=== PATIENT | male | born 1980 | race Caucasian/White ===

== ENCOUNTER 2023-11-20 10:07 | Inpatient (IN) | payer OTHER ==
[2023-11-20 10:39] VITALS: BMI 29.2
[2023-11-20] MEDS ORDERED: ACETAMINOPHEN 500 MG TAB PO PRN (12:28)
[2023-11-20] MEDS ORDERED: VANCOMYCIN 1 GM in NA CHLORIDE 0.9% 250 ML IVPB SCH (13:00)
[2023-11-20] MEDS ORDERED: VANCOMYCIN 2 GM in NA CHLORIDE 0.9% 500 ML IVPB ONE (13:00)
[2023-11-20 13:20] LABS: Absolute Lymphocytes (CBC) 1.6 K/uL (0.7-4.9); Hematocrit 42.8 % (39.6-49.0); Lymphocytes % 14.4 % (15.3-44.8); MCV 80.2 fL (80-100); MPV 9.5 fL (7.6-11.3); Platelets 173 thou/uL (152-406); RBC Red Blood Cell Count 5.33 M/uL (4.33-5.43)
[2023-11-20 14:08] LABS: ALT/SGPT 28 U/L (16-61); AST/SGOT 19 U/L (15-37); Albumin 3.4 g/dL (3.4-5.0); Alkaline Phosphatase 83 U/L (45-117); BUN Blood Urea Nitrogen 11 mg/dL (7-18); Bicarbonate 29 mEq/L (21-32); Bilirubin Total 0.5 mg/dL (0.2-1.0); Glomerular Filtration Rate 111 ml/min (=/>90); Glucose Level 130 mg/dL (74-106); Magnesium 1.9 mg/dL (1.6-2.4); Potassium 3.8 mEq/L (3.5-5.1); Sodium Level 138 mEq/L (136-145)
[2023-11-20 14:10] LABS: C-Reactive Protein < 2.90 mg/L (<3.00)
--- NOTE | 2023-11-20 15:02 | RAD REPORT ---
EXAM DESCRIPTION: Laurita Turner (2 Views)11/20/2023 1:37 pm CLINICAL HISTORY: Cellulitis COMPARISON: None FINDINGS: The lungs appear clear of acute infiltrate. The heart is mildly enlarged. Postsurgical ch anges involve the chest IMPRESSION: No acute abnormalities displayed
--- NOTE | 2023-11-20 16:37 | CON ---
Date of Consultation: 11/20/2023 Reason For Consultation: Left great toe infection. 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 Puga's office today with a left great toe in fection for about 2 months, progressive in nature, getting worsening associated with redness, warmth and swelling and minimal crusty discharge. The patient does have discomfort in this toe. Does not h ave any fevers or chills. No sore throat, runny nose, cough, headaches, or dizziness. No chest pain . Review of Systems: Otherwise, unremarkable. Past Medical History: Negative. Past Surgical History: Closure of an ASD when he was a child. Allergies: NO ALLERGIES. Social History: He does not smoke or drink. Family History: Noncontributory. Physical Examination: Vital Signs: Stable. General: He is awake, alert, oriented x3. Head and Neck: No masses. Chest: Clear. Heart: S1, S2. Abdomen: Soft. Extremities: Normal dorsalis pedis and posterior tibial pulses 2+ and equal bilaterally. On the lef t great toe, there are erythema, warmth, edema. The nail was partially avulsed with crusty material on the medial and lateral aspect of the nail. It appears that there may be fluid underneath there. It is tender. Neuro: Nonfocal. Diagnostic Data: X-ray of the foot and MRI are pending. Laboratory Data: Shows a white count 10.8 with a left shift. Chemistry reviewed. Glucose is slight ly elevated at 130, otherwise essentially unremarkable. Assessment: Left great toe infection, rule out abscess and osteomyelitis. Recommendations: Continue IV antibiotics, ceftriaxone and vancomycin as ordered. NPO after midnight for debridement of the left great toe. Patient and family understand risks, benefits, alternatives, and agrees to procedure. We will await the results of the MRI and the x-ray of the toe and adjust t he recommendation based on the results. The plan of care was discussed in detail with Dr. Puga. RASHI/SALONI Voice ID: [id number] Report ID: [id number]
[2023-11-20] MEDS: ENOXAPARIN 40 MG/0.4 ML SQ SCH (16:50)
--- NOTE | 2023-11-20 18:11 | RAD REPORT ---
EXAM DESCRIPTION: RAD - Foot Left 3 View - 11/20/2023 3:12 pm CLINICAL HISTORY: Left Foot pain FINDINGS: No fracture or dislocation is seen. Cortical regularity involves terminal tuft first distal phalanx consistent with osteomyelitis.
--- NOTE | 2023-11-20 18:16 | RAD REPORT ---
EXAM DESCRIPTION: MRI - Foot Left Wo Cont - 11/20/2023 4:09 pm CLINICAL HISTORY: Foot pain and swelling COMPARISON: X-ray November 20, 2023 TECHNIQUE: Axial and coronal magnetic resonance imaging of the l abdomen performed FINDINGS: Abnormal signal involves the distal aspect of the first distal phalanx consistent with ost eomyelitis. No fracture or dislocation 1.3 centimeter fluid collection lies adjacent to the plantar aspect of the first metatarsal head IMPRESSION: Osteomyelitis first distal phalanx 1.3 centimeter fluid collection adjacent to the plantar aspect of the first metatarsal head may repre sent an abscess and should be correlated clinically
[2023-11-20] MEDS: CEFTRIAXONE 1,000 MG in NA CHLORIDE 0.9% 50 ML IVPB SCH (20:42)
--- NOTE | 2023-11-20 21:19 | HP ---
Date of Admission: 11/20/2023 Chief Complaint: Left toe pain and redness. History Of Present Illness: This is a 43-year-old very pleasant male patient who came into office to day with his mother with left foot problem. Patient injured his left great toe when he accidentally hit against furniture about 3 months ago and since that time, he has this redness, swelling, and some discharge from the nail bed of the left great toe area. He did not seek any medical attention until today was the first time he was brought into my office and after he was evaluated at office, he was admitted to the hospital as I was concerned about possibility of osteomyelitis of this foot. Allergies: NO KNOWN ALLERGIES. Medications: He does not take any medications at home. Review of Systems: Musculoskeletal: As mentioned above. Dermatology: As mentioned above. All other systems reviewed and negative. Past Medical History: Significant for atrial septal defect. Past Surgical History: Significant for repair of atrial septal defect in 1992. Family History: Not pertinent. Social History: Negative for smoking and alcohol use. Physical Examination: Vital Signs: Height 5 feet 5 inches, weight 176 pounds. Temperature , pulse , r espiratory rate , blood pressure , oxygen saturation . General: Awake, alert, oriented, not in distress. HEENT: Head atraumatic, normocephalic. Conjunctivae nonerythematous. Sclerae white. Mouth, no thr ush or edema noted. Ears/Nose, no mass, lesion, discharge noted. Neck: Supple. No JVD, lymph nodes, bruit, thyromegaly noted. Lungs: Bilateral good equal air entry. Clear to auscultation. No rhonchi. No rales. Heart: Presence of systolic murmur. No gallop. Abdomen: Soft, bowel sounds normal. No guarding, rigidity, tenderness, mass, hepatosplenomegaly, dis tention, or bruit noted. Extremities: No leg edema. No calf tenderness. Skin: No rash, ulcer, cellulitis. Lymphatics: No lymph node enlargement in neck, supraclavicular, infraclavicular region. Neuro: No focal neurological deficit. Chest: Unremarkable. External Genitalia: Deferred. Rectal: Deferred. Musculoskeletal: Patient's left great toe skin involving entire toe is red. Patient has mild soft t issue edema involving entire left great toe and there is some tenderness of the left great toe. Jimena ent has some dry discharge at the left great toe nail bed area. There is no open wound. Peripheral pulses, dorsalis pedis artery pulsation 2+ bilaterally equal and normal. Laboratory Data: White count 10.8, hemoglobin 15, platelets 173. Sodium 138, potassium 3.8, chlorid e 106, bicarb 29, BUN 11, creatinine 0.83, glucose 130. Liver function tests unremarkable. TSH 1.87 0. CRP less than 2.9. Chest x-ray, no acute cardiopulmonary changes. Left foot x-ray shows cortica l irregularity involving left distal phalanx consistent with osteomyelitis and MRI of left foot shows osteomyelitis involving 1st distal phalanx and 1.3 cm fluid collection in the left great toe, soft t issue. Impression: 1.Cellulitis/abscess, left great toe. 2.Osteomyelitis, acute, left great toe. Plan: We will admit the patient to hospital for further evaluation and management of this problem. Patient is appropriate for inpatient and is expected to spend 2 midnights in hospital. DVT prophylax is will be given using Lovenox per order. I have consulted Dr. Pride from General Surgery and detail s were discussed with him. He is going to do debridement tomorrow. Meanwhile, we will start the pat ient on IV antibiotic, which is ceftriaxone and vancomycin. We will order PICC line and Social Servi ce consultation as the patient will need 6 weeks of IV antibiotic therapy. Lovenox will be given for DVT prophylaxis. Details and plan of treatment discussed with the patient and patient's mother. ANGIE/MODL Voice ID: [id number]
[2023-11-21] MEDS: VANCOMYCIN 1.5 GM in NA CHLORIDE 0.9% 500 ML IVPB SCH ×2 (01:00→13:14)
--- NOTE | 2023-11-21 06:53 | ECHO ---
HEIGHT: 5 ft 5 in WEIGHT: 176 lb 0 oz DATE OF STUDY: 11/20/[address]: Joseph Puga MD 2-DIMENSIONAL: YES M.MODE: YES DOPPLER: YES COLOR FLOW: YES TDS: PORTABLE: YES DEFINITY: BUBBLE STUDY: DIAGNOSIS: MURMUR/ STATUS POST ATRIAL SEPTAL DEFECT REPAIR IN 1992 CARDIAC HISTORY: CATHERIZATION: SURGERY: PROSTHETIC VALVE: PACEMAKER: MEASUREMENTS (cm) DIASTOLIC (NORMALS) SYSTOLIC (NORMALS) IVSd 1.0 (0.6-1.2) LA Diam 3.8 (1.9-4.0) LVEF 65% LVIDd 4.3 (3.5-5.7) LVIDs 2.8 (2.0-3.5) %FS 35% LVPWd 1.1 (0.6-1.2) Ao Diam 3.4 (2.0-3.7) 2 DIMENSIONAL ASSESSMENT: RIGHT ATRIUM: NORMAL LEFT ATRIUM: NORMAL RIGHT VENTRICLE: NORMAL LEFT VENTRICLE: NORMAL TRICUSPID VALVE: MILD TRICUSPID REGURGITATION MITRAL VALVE: MILD MITRAL REGURGITATION PULMONIC VALVE: NORMAL AORTIC VALVE: NORMAL PERICARDIAL EFFUSION: NONE AORTIC ROOT: NORMAL LEFT VENTRICULAR WALL MOTION: NORMAL DOPPLER/COLOR FLOW: SEE BELOW COMMENTS: 1. NORMAL LEFT VENTRICULAR EJECTION FRACTION 60-65% 2. NORMAL WALL MOTION 3. NORMAL DIASTOLIC FUNTION 4. MILD TRICUSPID REGURGITATION 5. MILD MITRAL REGURGITATION TECHNOLOGIST: GRADY FOSTER
[2023-11-21] MEDS ORDERED: Ringers Lactate 1,000 ML IV ONE (06:58)
[2023-11-21] MEDS ORDERED: BUPIVACAINE 0.5% PF 10 ML VIAL ONE (07:22)
[2023-11-21] MEDS ORDERED: MIDAZOLAM HCL 2 MG/2 ML INJ ONE (07:26)
[2023-11-21] MEDS ORDERED: LIDOCAINE 1% MPF 5 ML VIAL ONE (07:34)
[2023-11-21] MEDS ORDERED: propofoL 200 MG/20 ML VIAL IV ONE (07:34)
[2023-11-21] MEDS ORDERED: FENTANYL CITR 100 MCG/2 ML ONE (07:35)
[2023-11-21] MEDS ORDERED: dexAMETHasone 4 MG/ML VIAL ONE (08:24)
[2023-11-21] MEDS ORDERED: ONDANSETRON 4 MG/2 ML VIAL ONE (08:24)
[2023-11-21] MEDS ORDERED: KETOROLAC 30 MG/ML INJ ONE (08:24)
[2023-11-21] MEDS ORDERED: EPHEDRINE SULF 50 MG/ML VIAL ONE (08:24)
--- NOTE | 2023-11-21 08:37 | P.OP ---
Date of Service: 11/21/23 Preop diagnosis: Left first toe infected wound with osteomyelitis Postop diagnosis: Same Procedure performed: Debridement of left first toe subcutaneous tissue, debridement of toenail Surgeon: Michel Pride MD Product Support Representative: None Estimated blood loss: Minimal Specimen: Fluid and infected tissue for culture and sensitivity Findings: As above Anesthesia: General Complications: None Drains: None Fluids and blood products: Nonapplicable Disposition: Recovery room Operative note: Patient brought to the OR and placed in supine position. General anesthesia begun. Patient prepped and draped in the usual sterile fashion. Marcaine 0.5% infiltrated in a field block fashion. 18-gauge needle used to aspirate approximately 1 cc of fluid on the plantar aspect near the first metatarsal head. Fluid sent for culture and sensitivity. Patient had hypertrophic granulation tissue on the sides of the nail on the first toe. This was sharply debrided down through to the subcutaneous tissue with scissors. Bleeding controlled with cautery. The edge of the toenail was digging into the tissue. Bone cutter was used to debride the edges of the toenail all the way to the base of the nail. Curette was used to debride more infected granulation tissue. All tissue that was debrided was sent for culture and sensitivity. Wound irrigated and bleeding controlled cautery. Patient had toenails on the other toes as needed to be cut. And this was done with a nipper. Sterile dressing was applied. Patient awakened and taken to recovery room in good general condition. CC: Dr. Puga's office
[2023-11-21] MEDS: Mupirocin NASAL 2 APPL/1 GM TUBE NAS SCH ×2 (09:00→21:57)
[2023-11-21] MEDS ORDERED: HYDROMORPHONE HCL 1 MG/ML INJ IV PRN (09:10)
[2023-11-21] MEDS: CEFTRIAXONE 1,000 MG in NA CHLORIDE 0.9% 50 ML IVPB SCH ×2 (10:24→21:56)
[2023-11-21] MEDS: HYDROCODONE/APAP 7.5/325 MG TAB PO PRN ×2 (10:25→19:32)
[2023-11-21] MEDS: ENOXAPARIN 40 MG/0.4 ML SQ SCH (18:08)
--- NOTE | 2023-11-21 20:31 | PN ---
Date of Progress Note: 11/21/2023 Subjective: The patient was seen this morning for followup. No new complaints or problems reported by the patient or the patient's parents who were at bedside. I saw him prior to surgery today and hi s condition remained stable overnight. Objective: Vital Signs: Reviewed. HEENT: Unremarkable. Lungs: Clear to auscultation. Heart: Sounds normal. Abdomen: Soft. Bowel sounds normal. No guarding, rigidity, tenderness, distention. Extremities: No leg edema. Laboratory Data: Labs reviewed. X-ray of left foot and MRI of left foot show changes consistent wit h osteomyelitis of left foot great toe, and MRI also shows about 1.3 cm fluid collection in the soft tissue of the left great toe. Impression: 1.Cellulitis/abscess, left foot, great toe. 2.Acute osteomyelitis, left foot, great toe. Plan: We will go ahead and continue current antibiotic, which is vancomycin and ceftriaxone. Dr. Dave carrera from General Surgery saw him yesterday and he will perform surgical procedure today for the debri thea. We will follow up on wound culture results once it is available. PICC line was ordered and Social Service consultation was ordered to help make arrangements for 6 weeks of IV antibiotic therap y at home. Details and plan of treatment discussed with the patient and the patient's parents. ANGIE/MODL Voice ID: [id number] Report ID: [id number]
--- NOTE | 2023-11-21 22:03 | RAD REPORT ---
EXAM DESCRIPTION: Laurita Single View11/21/2023 9:49 pm CLINICAL HISTORY: PICC Placement COMPARISON: Chest Pa And Lat (2 Views) dated 11/20/2023 TECHNIQUE: Portable AP view of the chest. FINDINGS: Right arm PICC with catheter tip projecting at the superior cavoatrial junction. The lungs are clear. No pneumothorax or effusion. Moderate cardiomegaly. Mediastinal contours are unchanged w ith sequelae of medial cirrhotic. IMPRESSION: Satisfactory positioning of right arm PICC. Cardiomegaly. No acute pulmonary process.
[2023-11-21 23:41] VITALS: O2SAT 93
[2023-11-22] MEDS: VANCOMYCIN 1.5 GM in NA CHLORIDE 0.9% 500 ML IVPB SCH ×2 (01:00→12:25)
[2023-11-22] MEDS: CEFTRIAXONE 1,000 MG in NA CHLORIDE 0.9% 50 ML IVPB SCH (09:21)
[2023-11-22] MEDS: Mupirocin NASAL 2 APPL/1 GM TUBE NAS SCH (09:21)
--- NOTE | 2023-11-22 12:58 | PN ---
Date of Progress Note: 11/22/2023 Subjective: Patient is awake, alert. No complaint. Objective: Vital Signs: Stable, afebrile. Gram stain shows coag, gram-positive cocci. Extremities: Examination of the left great toe reveals decreased swelling and erythema. There is so me crusty material on the edges of the toenail. No purulent discharge. Assessment: Osteomyelitis and infected wound, left great toe. Recommendations: IV antibiotics per Dr. Puga. Wound care order has been given. Discharge planning has been explained to the patient and family. Patient will follow up with me in the [facility] Healing [facility] next . /MODL Voice ID: [id number] Report ID: [id number]
[2023-11-22 16:29] VITALS: BP 131/83; TEMP 97.9
[2023-11-22] MEDS: ENOXAPARIN 40 MG/0.4 ML SQ SCH (17:00)
== END 2023-11-22 17:57 | disposition home health service (06) | DRG 464 ==
LOC: 2ND 10:09
PROVIDERS: ADMIT Internal Medicine; ATTEND Internal Medicine
PROC: 02HV33Z Insertion of Infusion Device into Superior Vena Cava, Percutaneous Approach (ICD-10-PCS; 2023-11-21)
PROC: 0JBR0ZZ Excision of Left Foot Subcutaneous Tissue and Fascia, Open Approach (ICD-10-PCS; principal; 2023-11-21 07:30)
DX: M86.172 Other acute osteomyelitis, left ankle and foot (principal); L02.612 Cutaneous abscess of left foot; L03.032 Cellulitis of left toe
CPT/HCPCS: 36415; 36569; 71045; 71046; 80053; 80061; 80202; 83735; 84443; 85025; 86140; 87070; 87075; 87077; 87176; 87186; 87205; 93306; 97161; G0103; J0696; J1100; J1650; J2001; J2250; J2405; J2704; J3010; J7040; J7120